=== PATIENT | male | born 2000 | race Caucasian/White ===

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

== ENCOUNTER 2018-02-14 11:23 | Emergency (ER) | payer BC ==
[2018-02-14 11:40] VITALS: BP 112/81
--- NOTE | 2018-02-14 12:10 | UC ---
Ear Complaint HPI - HPI Summary HPI Summary: 17 y/o male presents to the urgent care accompany by father c/o left ear pain for the past week. Pt reports Hx of seasonal allergies. Symptoms started w/ mild nasal congestion and clear discharge. Then ear pressure. he usually takes Cetirizine PO daily for allergies. Pain is 6/10 associated w/ mild decrease hearing. He took Tylenol PO last night to alleviate symptoms. Pt denies tinnitus, dizziness, GLORIA, cough, fever, chest pain, abdominal pain, N/V/D. Pt is UTD w/ all vaccines for his age as per father. - History of Current Complaint Chief Complaint: UCEar Stated Complaint: L EAR PAIN Time Seen by Provider: 02/14/18 12:10 Hx Obtained From: Patient, Family/Pvc Loader - father Onset/Duration: Gradual Onset, Lasting Weeks - 1 week, Worse Since - yesterday Severity Initially: Mild Severity Currently: Moderate Pain Intensity: 6 Pain Scale Used: 0-10 Numeric Aggravating Factors: Other - nasal congestion Alleviating Factors: OTC Meds Associated Signs/Symptoms: Positive: Hearing Loss Related History: Seasonal Allergies - Allergies/Home Medications Allergies/Adverse Reactions: Allergies Allergy/AdvReac Type Severity Reaction Status Date / Time No Known Allergies Allergy Verified 02/14/18 11:40 Home Medications: Home Medications Cetirizine* [ZyrTEC 10 MG TAB*] 10 mg PO DAILY PRN 02/14/18 [History Confirmed 02/14/18] diphenhydrAMINE HCl [Benadryl Allergy] 25 mg PO ONCE PRN 02/14/18 [History Confirmed 02/14/18] PMH/Surg Hx/FS Hx/Imm Hx Previously Healthy: Yes - Pt denies PMHX - Surgical History Surgical History: Yes Surgery Procedure, Year, and Place: tonsillectomy. oral surgery - Family History Known Family History: Positive: Hypertension Negative: Cardiac Disease, Diabetes - Social History Occupation: Student Lives: With Family Alcohol Use: Weekly Substance Use Type: None Smoking Status (MU): Never Smoked Tobacco - Immunization History Vaccination Up to Date: Yes Review of Systems Constitutional: Negative Skin: Negative Eyes: Negative ENT: Ear Ache - left ear pain, Nasal Discharge - clear, Sinus Congestion, Other - decrease hearing form left ear Respiratory: Negative Cardiovascular: Negative Gastrointestinal: Negative Genitourinary: Negative Motor: Negative Neurovascular: Negative Musculoskeletal: Negative Neurological: Negative Psychological: Negative Is Patient Immunocompromised?: No All Other Systems Reviewed And Are Negative: Yes Physical Exam - Summary Physical Exam Summary: Vital signs: reviewed General: well developed, well nourished male adolescent sitting in the examining table w/o any apparent distress Skin: [place], warm and dry, no evidence of atopic dermatitis, psoriasis, seborrhea. HEENT: -Head: atraumatic, non tender; no scalp dermatitis. -Eyes: sclera and conjunctiva clear, PERRLA, EOMI -Ears: no pre- or postauricular lymphadenopathy or erythema; LF external ear canal clear. LF TM injected w/ erythema and purulent yellowish discharge, RT external ear canal clear and RT TM WNL. Good light reflex. No fluid level, vesicles, or bullae. No perforation. -Nose/Face: erythematous and edematous nasal mucosa with clear rhinorrhea, no frontal or maxillary sinus tender to palpation. -Mouth/Throat: Mucous membrane moist, posterior pharynx clear, no erythema or exudates. Neck: supple, FROM, nontender, no lymphadenopathy, no meningismus. Chest: Clear to auscultation, normal breath sounds Abd: soft, Bowel sounds active, Nontender. Back: no spinal or CVAT Neuro: A&O x4, GCS 15, no focal neuro deficits, normal behavior for age. Triage Information Reviewed: Yes Vital Signs: Initial Vital Signs Temp 98 F 02/14/18 11:38 Pulse 76 02/14/18 11:38 Resp 14 02/14/18 11:38 BP 112/81 02/14/18 11:38 Pulse Ox 98 02/14/18 11:38 Ear Complaint Course/Dx - Course Course Of Treatment: 17 y/o male presents to the urgent care accompany by father c/o left ear pain for the past week. Pt reports Hx of seasonal allergies. Symptoms started w/ mild nasal congestion and clear discharge. Then ear pressure. he usually takes Cetirizine PO daily for allergies. Pain is 6/10 associated w/ mild decrease hearing. He took Tylenol PO last night to alleviate symptoms. Pt denies tinnitus, dizziness, GLORIA, cough, fever, chest pain , abdominal pain, N/V/D. Pt is UTD w/ all vaccines for his age as per father. Hx obtained. Pt w/ left otitis Media on examination.Pt Rx Amoxicillin PO and Ibuprofen PO. Father and Pt advised if symptoms do not improve or worsen to return to the urgent care or f/u with PCP for further management. Father and PT understood and agreed with D/C instructions. - Differential Dx/Diagnosis Differential Diagnosis/HQI/PQRI: Cerumen Impaction, Otitis Externa, Otitis Media , URI Provider Diagnoses: 1- Left otitis media. 2- otalgia Discharge - Sign-Out/Discharge Documenting (check all that apply): Patient Departure - D/c home All imaging exams completed and their final reports reviewed: No Studies - Discharge Plan Condition: Stable Disposition: HOME Prescriptions: Amoxicillin PO (*) [Amoxicillin 875 MG (*)] 875 mg PO BID #20 tab Ibuprofen TAB* [Motrin TAB* 600 MG] 600 mg PO Q6H PRN #30 tab PRN Reason: otalgia Patient Education Materials: Ear Infection (ED) Referrals: [facility] [Outside] - 3 Days Additional Instructions: 1- Please take the full course of the antibiotic to avoid resistance. 2-Please take ibuprofen PO q6-8hrs prn as instructed after meals to alleviate pain and swelling. Increase fluid intake, eat well, rest and avoid strenuous exercise 3-If symptoms do not improve or worsen please return to the urgent care or f/u with your PCP in 3 days for further evaluation and treatment. - Billing Disposition and Condition Condition: STABLE Disposition: Home - Attestation Statements Provider Attestation: Per institutional requirements, I have reviewed the chart, however, I was not consulted specifically or made aware of this patient by the midlevel provider. I did not personally evaluate, interact with , or disposition this patient.
== END 2018-02-14 12:43 | disposition home or self-care (01) ==
LOC: UCEAST 11:23
DX: H66.92 Otitis media, unspecified, left ear (principal)
CPT/HCPCS: 99212; G0463